=== PATIENT | female | born 1965 | race Caucasian/White ===

== ENCOUNTER 2017-07-30 12:13 | Emergency (ER) | payer OTHER ==
[~2017-07-30] VITALS: Ht 162.6 cm; Wt 54.9 kg
[~2017-07-30 12:13] MED LIST: CARAFATE 1 GM TA1 G1 PO; HYDROCODONE-AP1 EAC6 PO; OMEPRAZOLE 20 M20 M1 PO; PROBIOTIC1 EAC1 PO; TORADOL 10 MG T10 MG PO
[2017-07-30 12:20] VITALS: BP 147/79
[2017-07-30] MEDS ORDERED: NORCO 5-325 TA1 EACH PO (12:28)
[2017-07-30] MEDS ORDERED: TORADOL 10 MG T10 MG PO (12:28)
== END 2017-07-30 12:38 | disposition home or self-care (01) ==
LOC: M.ERS 12:13
DX: M25.551 Pain in right hip (principal); Z90.710 Acquired absence of both cervix and uterus; Z98.84 Bariatric surgery status; Z88.1 Allergy status to other antibiotic agents